=== PATIENT | female | born 1990 | race Hispanic/Latino ===

== ENCOUNTER 2018-06-04 08:58 | Emergency (ER) | payer OTHER ==
[2018-06-04 09:11] VITALS: BP 128/89
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
[2018-06-04 10:46] LABS: Basophils # (Auto) 0.1 K/mm3 (0.0-0.1); Basophils % (Auto) 1.5 % (0.0-1.8); Eosinophils # (Auto) 0.3 K/mm3 (0.0-0.4); Eosinophils % (Auto) 2.6 % (0.0-4.3); Hematocrit 41.2 % (30.3-42.9); Hemoglobin 13.5 gm/dl (10.1-14.3); Lymphocytes % (Auto) 20.1 % (13.4-35.0); Mean Corpuscular HGB Conc 33 % (30-34); Mean Corpuscular Hemoglobin 30 pg (28-32); Mean Corpuscular Volume 90 fl (79-97); Monocytes # (Auto) 0.6 K/mm3 (0.0-0.8); Platelet Count 346 K/mm3 (140-440); Red Blood Count 4.58 M/mm3 (3.65-5.03); Red Cell Distribution Width 14.1 % (13.2-15.2)
[2018-06-04 10:57] LABS: BUN/Creatinine Ratio 17; Blood Urea Nitrogen 10 mg/dL (7-17); Calcium 9.5 mg/dL (8.4-10.2); Hemolysis Index 12
== END 2018-06-04 10:29 | disposition left against medical advice (07) ==
LOC: ED 08:58
DX: S02.609A Fracture of mandible, unspecified, initial encounter for closed fracture (principal); G40.909 Epilepsy, unspecified, not intractable, without status epilepticus; F17.200 Nicotine dependence, unspecified, uncomplicated; X58.XXXA Exposure to other specified factors, initial encounter; Y93.89 Activity, other specified; Y92.89 Other specified places as the place of occurrence of the external cause; Y99.8 Other external cause status
CPT/HCPCS: 36415; 80048; 85025; 99283

== ENCOUNTER 2018-09-23 19:32 | Emergency (ER) | payer SELFPAY ==
[2018-09-23] MEDS ORDERED: NACL 0.9% 1000 ML 1,000 ML IV ONE (19:42)
[2018-09-23] MEDS ORDERED: ATIVAN IV ONE (19:45)
[2018-09-23] MEDS ORDERED: ATIVAN ONE (19:45)
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
[2018-09-23] MEDS ORDERED: CEREBYX 1,000 MG.PE in NACL 0.9% 100 ML IV ONE (20:42)
[2018-09-23 20:50] LABS: Basophils # (Auto) 0.1 K/mm3 (0.0-0.1); Basophils % (Auto) 1.3 % (0.0-1.8); Eosinophils # (Auto) 0.1 K/mm3 (0.0-0.4); Eosinophils % (Auto) 1.6 % (0.0-4.3); Hematocrit 40.3 % (30.3-42.9); Hemoglobin 13.2 gm/dl (10.1-14.3); Lymphocytes # (Auto) 1.6 K/mm3 (1.2-5.4); Lymphocytes % (Auto) 32.6 % (13.4-35.0); Mean Corpuscular HGB Conc 33 % (30-34); Mean Corpuscular Volume 86 fl (79-97); Monocytes # (Auto) 0.2 K/mm3 (0.0-0.8); Monocytes % (Auto) 4.7 % (0.0-7.3); Platelet Count 236 K/mm3 (140-440); Red Blood Count 4.66 M/mm3 (3.65-5.03); Red Cell Distribution Width 14.6 % (13.2-15.2)
[2018-09-23 20:59] LABS: INR 0.96 (0.87-1.13)
[2018-09-23 21:00] LABS: Partial Thromboplastin Time 30.8 Sec. (24.2-36.6)
[2018-09-23 21:08] LABS: Alanine Aminotransferase 7 units/L (7-56); BUN/Creatinine Ratio 16; Blood Urea Nitrogen 11 mg/dL (7-17); Calcium 8.3 mg/dL (8.4-10.2); Hemolysis Index 10
[2018-09-23 21:18] LABS: Bilirubin,Direct < 0.2 mg/dL (0-0.2)
[2018-09-23 22:11] LABS: Bilirubin,Urine NEG (Negative); Blood,Urine LG (Negative); Color,Urine Yellow (Yellow); Mucus,Urine FEW /HPF; Protein,Urine <15 mg/dL mg/dL (Negative); Urobilinogen,Urine < 2.0 mg/dL (<2.0)
[2018-09-23 22:20] LABS: Amphetamine Screen,Urine PRESUMPTIVE NEGATIVE; Benzodiazepines Screen,Urine PRESUMPTIVE NEGATIVE; Cannabinoid Screen,Urine PRESUMPTIVE NEGATIVE; Cocaine Screen,Urine PRESUMPTIVE NEGATIVE; Methadone Screen,Urine PRESUMPTIVE NEGATIVE; Opiate Screen,Urine PRESUMPTIVE NEGATIVE
[2018-09-23] MEDS ORDERED: TORADOL IV ONE (22:20)
[2018-09-23 23:29] VITALS: BP 108/72
== END 2018-09-23 23:28 | disposition home or self-care (01) ==
LOC: ED 19:32
DX: G40.909 Epilepsy, unspecified, not intractable, without status epilepticus (principal); N93.9 Abnormal uterine and vaginal bleeding, unspecified; N39.0 Urinary tract infection, site not specified; F17.200 Nicotine dependence, unspecified, uncomplicated
CPT/HCPCS: 36415; 80048; 80076; 80307; 81001; 84703; 85025; 85610; 85730; 96365; 96375; 99284; J1885; J2060; J7030; Q2009

== ENCOUNTER 2019-01-24 04:23 | Emergency (ER) | payer OTHER ==
[2019-01-24 05:06] LABS: Basophils # (Auto) 0.1 K/mm3 (0.0-0.1); Basophils % (Auto) 1.2 % (0.0-1.8); Eosinophils # (Auto) 0.1 K/mm3 (0.0-0.4); Eosinophils % (Auto) 1.7 % (0.0-4.3); Hemoglobin 13.3 gm/dl (10.1-14.3); Mean Corpuscular HGB Conc 33 % (30-34); Mean Corpuscular Volume 84 fl (79-97); Monocytes # (Auto) 0.6 K/mm3 (0.0-0.8); Monocytes % (Auto) 7.5 % (0.0-7.3); Platelet Count 241 K/mm3 (140-440); Red Blood Count 4.78 M/mm3 (3.65-5.03); Red Cell Distribution Width 16.1 % (13.2-15.2)
[2019-01-24 05:27] LABS: BUN/Creatinine Ratio 14; Blood Urea Nitrogen 13 mg/dL (7-17); Calcium 9.6 mg/dL (8.4-10.2); Hemolysis Index 9
[2019-01-24] MEDS ORDERED: BOOSTRIX IM ONE (06:22)
[2019-01-24 06:28] LABS: Amorphous Crystals,Urine 1+; Bacteria,Urine 4+ /HPF (Negative); Bilirubin,Urine NEG (Negative); Blood,Urine NEG (Negative); Color,Urine Yellow (Yellow); Mucus,Urine FEW /HPF; Protein,Urine <15 mg/dL mg/dL (Negative); Urobilinogen,Urine < 2.0 mg/dL (<2.0)
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
[2019-01-24 06:35] LABS: Amphetamine Screen,Urine PRESUMPTIVE NEGATIVE; Benzodiazepines Screen,Urine PRESUMPTIVE NEGATIVE; Methadone Screen,Urine PRESUMPTIVE NEGATIVE; Opiate Screen,Urine PRESUMPTIVE NEGATIVE
[2019-01-24 06:50] LABS: Cannabinoid Screen,Urine PRESUMPTIVE POSITIVE; Cocaine Screen,Urine PRESUMPTIVE POSITIVE
[2019-01-24] MEDS ORDERED: MACROBID PO ONE (07:22)
[2019-01-24] MEDS ORDERED: VISTARIL PO PRN (10:10)
--- NOTE | 2019-01-24 10:12 | Consultation ---
History of Present Illness - Reason for Consult Consult date: 01/24/19 Reason for consult: Mental Health Evaluation Requesting physician: GAVIN BABB - Chief Complaint Chief complaint: 'I need help" - History of Present Psychiatric Illness 28-year-old female presents to the emergency department for a mental health evaluation. Today the patient is calm, but evasive during the assessment. She stated that she only came to the ER to get medications. She acknowledged a recent suicide attempt by hanging herself. 2 or 3 eeks ago. She stated that she have not been compliant with her medications in "months." She was asked several other questions about her mental health, her answers were vague. She would not conform or deny SI's when asked. She rate her depression/anxiety 6/10, with 10 being the worse. She denies HI's and AVH's. She denies a poor appetite, but acknowledged erratic sleep. She denies alcohol consumption (etoh). Medications and Allergies Allergies Allergy/AdvReac Type Severity Reaction Status Date / Time No Known Allergies Allergy Unverified 06/04/18 09:11 Home Medications Medication Instructions Recorded Confirmed Last Taken Type Naproxen [Naprosyn] 500 mg PO BID #14 tablet 09/23/[address]in [place]/M-Cryst 100 mg PO Q12HR #14 capsule 09/23/18 Unknown Rx [Macrobid CAP] Phenytoin [Dilantin] 100 mg PO Q8HR #90 capsule 09/23/18 Unknown Rx medroxyPROGESTERone ACETATE 10 mg PO QDAY #10 tablet 09/23/18 Unknown Rx [Provera] Active Meds: Active Medications Nicotine (Habitrol) 14 mg TD ONCE ONE Stop: 01/24/19 10:43 Past psychiatric history - Past Medical History Past Medical History: seizures Past Surgical History: No surgical history - past Psychiatric treatment and history psychiatric treatment history: Hx of substance abuse. Denies a fam psy hx. - Social History Social history: other (Reside with her boyfriend) Mental Status Exam - Vital signs Last Vital Signs Temp 98.4 F 01/24/19 05:41 Pulse 62 01/24/19 05:42 Resp 18 01/24/19 05:42 BP 122/91 01/24/19 05:42 Pulse Ox 100 01/24/19 05:42 - Exam Narrative exam: MSE: Appearance: calm Behavior: regular eye contact Speech: regular rate and tone Mood: evasive Affect: congruent to mood Thought Process:circumstantial Thought Content: denies HI's and AVH's Motor Activity: sitting up in bed Cognition: A/O x 3 Insight: vague Judgment: variable Results Result Diagrams: 01/24/19 04:44 01/24/19 04:44 Abnormal lab results 01/24/19 01/24/19 01/24/19 Range/Units 04:44 04:44 04:44 RDW (13.2-15.2) % Lymph % (Auto) (13.4-35.0) % [place] % (Auto) (0.0-7.3) % Carbon Dioxide 21 L (22-30) mmol/L Urine WBC (Auto) (0.0-6.0) /HPF Salicylates < 0.3 L (2.8-20.0) mg/dL Acetaminophen < 5.0 L (10.0-30.0) ug/mL 01/24/19 01/24/19 Range/Units 04:44 05:53 RDW 16.1 H (13.2-15.2) % Lymph % (Auto) 40.0 H (13.4-35.0) % [place] % (Auto) 7.5 H (0.0-7.3) % Carbon Dioxide (22-30) mmol/L Urine WBC (Auto) 26.0 H (0.0-6.0) /HPF Salicylates (2.8-20.0) mg/dL Acetaminophen (10.0-30.0) ug/mL All other labs normal. Assessment and Plan Assessment and plan: Impression: MDD. Unspecified Anxiety DO. Cannabis USe DO. Substance use DO (cocaine). Today the patient was calm, but evasive during the assessment. DDx: Bipolar DO, Substance Induced Mood DO Recommendation/Plan: Initiate 1013. Start Remeron 15 mg Po HS for depression and Vistaril 25 mg PO Q8hrs PRN for acute anxiety. Discussed possible suicidality/medication induced andre with the patient reference Remeron, she verbalized undersatnding. Dispo: The patient can referred to inpatient psy services. Will staff with Dr Cherri Joaquin,
[2019-01-24] MEDS ORDERED: HABITROL TD ONE (10:42)
[2019-01-24] MEDS: DILANTIN PO SCH ×2 (14:22→22:23)
[2019-01-24] MEDS ORDERED: MACROBID ONE (19:46)
[2019-01-24] MEDS: MACROBID PO SCH (22:23)
[2019-01-25] MEDS: REMERON PO SCH (00:18)
[2019-01-25] MEDS: DILANTIN PO SCH ×2 (06:37→14:01)
[2019-01-25] MEDS: MACROBID PO SCH (09:31)
--- NOTE | 2019-01-25 10:39 | Progress Note ---
Subjective - Reason for Consult Consult date: 01/25/19 Reason for consult: Psychiatry Follow-up - Chief Complaint Chief complaint: 'Hello" 28-year-old female presents to the emergency department for a mental health evaluation. Today the patient was calm and cooperative during the assessment. She is more willing to discuss her mental health today. She stated that she will seek out resources to help her stay "clean from drugs." She stated that she got rest last night. She denies SI/HI's and AVH's. She denies any side effects of her medication. Mental Status Exam - Vital signs Last Vital Signs Temp 97.9 F 01/25/19 09:06 Pulse 79 01/25/19 09:06 Resp 17 01/25/19 09:07 BP 106/71 01/25/19 09:06 Pulse Ox 99 01/25/19 09:07 - Exam Narrative exam: MSE: Appearance: calm, cooperative Behavior: regular eye contact Speech: regular rate and tone Mood: 'okay: Affect: congruent to mood Thought Process: circumstantial Thought Content: denies SI/HI's and AVH's Motor Activity: sitting up in bed Cognition: A/O x 3 Insight: variable to fair Judgment: variable to fair Assessment and Plan Impression: MDD. Unspecified Anxiety DO. Cannabis Use DO. Substance use DO (cocaine). Today the patient was calm and cooperative during the assessment. DDx: Bipolar DO, Substance Induced Mood DO Recommendation/Plan: Reevaluate the patient's 1013 in 24 hours. Continue Remeron 15 mg PO HS for depression and Vistaril 25 mg PO Q8hrs PRN for acute anxiety. Discussed possible suicidality/medication induced andre with the patient reference Remeron, she verbalized undersatnding. Dispo: If the patient's 1013 is rescinded in 24 hours, she can follow up with [facility] for outpatient psy services. Will staff with Dr Cherri Joaquin,
[2019-01-26] MEDS: DILANTIN PO SCH ×2 (00:31→22:10)
[2019-01-26] MEDS: MACROBID PO SCH ×3 (00:31→22:10)
[2019-01-26] MEDS: REMERON PO SCH ×2 (00:31→22:10)
--- NOTE | 2019-01-26 13:34 | Progress Note ---
Subjective - Reason for Consult Consult date: 01/26/19 Reason for consult: Psychiatric Follow-up Evaluation - Chief Complaint Chief complaint: "I feel good." Patient is 28-year-old female that presents to the emergency department for a mental health evaluation. Today the patient is cooperative but irritable during the assessment. Patient is guarded throughout the assessment. Thought content impoverished. She reports appropriate sleep and appetite.Patient denies SI/HI's, A/VH's, and delusions. Patient refused to address substance abuse. Provider unable to fully assess. Mental Status Exam - Vital signs Last Vital Signs Temp 97.9 F 01/26/19 08:47 Pulse 60 01/26/19 08:47 Resp 20 01/26/19 08:47 BP 100/62 01/26/19 08:47 Pulse Ox 99 01/26/19 08:47 - Exam Narrative exam: Mental Status Exam: Appearance: calm, cooperative Behavior: intermittent eye contact Speech: regular rate and tone Mood: irritable Affect: congruent to mood Thought Process: impoverished, circumstantial Thought Content: denies SI/HI's, AVH's, and delusions Motor Activity: sitting up in bed Cognition: A/O x 3 Insight: variable to fair Judgment: variable to fair Assessment and Plan Impression: MDD. Unspecified Anxiety DO. Cannabis Use DO. Substance use DO (cocaine). Today the patient was cooperative but irritable during the assessment. Provider unable to fully assess. DDx: Bipolar DO, Substance Induced Mood DO Recommendation/Plan: 1. Reevaluate the patient's 1013 in 24 hours. 2. Continue Remeron 15 mg PO HS for depression and Vistaril 25 mg PO Q8hrs PRN for acute anxiety. Discussed possible suicidality/medication induced andre with the patient reference Remeron, she verbalized undersatnding. Disposition: If the patient's 1013 is rescinded in 24 hours, she can follow up with [facility] for outpatient psy services. Will staff with Dr. Cherri Joaquin
[2019-01-26 20:38] VITALS: BP 92/68
== END 2019-01-27 00:08 ==
LOC: ED 04:23 → EEVIPCON 04:23 → ED 01-27 00:08
DX: F31.9 Bipolar disorder, unspecified (principal); G40.909 Epilepsy, unspecified, not intractable, without status epilepticus; F43.10 Post-traumatic stress disorder, unspecified; N30.00 Acute cystitis without hematuria; F12.10 Cannabis abuse, uncomplicated; F14.10 Cocaine abuse, uncomplicated; F17.200 Nicotine dependence, unspecified, uncomplicated
CPT/HCPCS: 36415; 80048; 80307; 81001; 84703; 85025; 99285; G0480; 80320; Q0177

== ENCOUNTER 2019-04-30 00:25 | Emergency (ER) | payer OTHER ==
[2019-04-30 01:31] LABS: Basophils # (Auto) 0.1 K/mm3 (0.0-0.1); Basophils % (Auto) 1.1 % (0.0-1.8); Eosinophils # (Auto) 0.1 K/mm3 (0.0-0.4); Eosinophils % (Auto) 1.5 % (0.0-4.3); Hematocrit 38.6 % (30.3-42.9); Hemoglobin 12.8 gm/dl (10.1-14.3); Lymphocytes # (Auto) 2.7 K/mm3 (1.2-5.4); Lymphocytes % (Auto) 42.3 % (13.4-35.0); Mean Corpuscular HGB Conc 33 % (30-34); Mean Corpuscular Volume 88 fl (79-97); Monocytes # (Auto) 0.6 K/mm3 (0.0-0.8); Monocytes % (Auto) 9.4 % (0.0-7.3); Platelet Count 193 K/mm3 (140-440); Red Blood Count 4.39 M/mm3 (3.65-5.03); Red Cell Distribution Width 15.4 % (13.2-15.2)
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
[2019-04-30 01:52] LABS: BUN/Creatinine Ratio 11; Blood Urea Nitrogen 9 mg/dL (7-17); Calcium 9.1 mg/dL (8.4-10.2); Hemolysis Index 1
[2019-04-30] MEDS ORDERED: GEODON IM ONE ×2 (03:41→07:34)
[2019-04-30] MEDS ORDERED: WATER FOR INJ Sterile (PF) 10 ML ONE (03:41)
[2019-04-30 03:45] LABS: Amphetamine Screen,Urine PRESUMPTIVE NEGATIVE; Benzodiazepines Screen,Urine PRESUMPTIVE NEGATIVE; Methadone Screen,Urine PRESUMPTIVE NEGATIVE; Opiate Screen,Urine PRESUMPTIVE NEGATIVE
[2019-04-30 04:03] LABS: Cannabinoid Screen,Urine PRESUMPTIVE POSITIVE; Cocaine Screen,Urine PRESUMPTIVE POSITIVE
[2019-04-30] MEDS ORDERED: MAGNESIUM SULFATE 2GM/50ML 0 GM/0 ML BAG IV ONE (04:38)
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
[2019-05-01] MEDS ORDERED: VASELINE TP PRN (01:15)
[2019-05-01] MEDS ORDERED: TRIPLE ANTIBIOTIC TP ONE (01:15)
[2019-05-01 04:48] LABS: Bilirubin,Urine NEG (Negative); Blood,Urine NEG (Negative); Color,Urine Yellow (Yellow); Mucus,Urine 1+ /HPF; Protein,Urine <15 mg/dL mg/dL (Negative); Urobilinogen,Urine < 2.0 mg/dL (<2.0)
--- NOTE | 2019-05-01 14:11 | Progress Note ---
Subjective - Reason for Consult Consult date: 05/01/19 Reason for consult: Psychiatry Follow-up - Chief Complaint Chief complaint: "I didn't try to hang myself" 29 y.o. whit female who presented to the ER for detox. Also, the patient has fresh ligature ness around her neck w/scabs present abrasions to face and chest. This patient is known to me. Today the patient was irritable during the assessment. Her story why she obtained a ligature jeanna around her neck and abrasion on her face didn't make sense. The patient has a hx of suicide attempt by hanging herself per a previous ER visit. After asking her several more questions about her abrasions, she refused to answer and put the bed sheet over her head. Mental Status Exam - Vital signs Last Vital Signs Temp 98.0 F 05/01/19 02:00 Pulse 86 05/01/19 02:00 Resp 18 05/01/19 02:00 BP 105/69 05/01/19 02:00 Pulse Ox 97 05/01/19 02:00 - Exam Narrative exam: MSE: Appearance: in hospital attire Behavior: poor eye contact Speech: regular rate and tone Mood: irritable, somewhat evasive Affect: congruent to mood Thought Process: circumstantial Thought Content: unable to assess Motor Activity: ambulatory Cognition: A/O x3 Insight: variable Judgment: variable Assessment and Plan Impression: MDD. Substance Use DO (cocaine). Cannabis Use DO. Possible suicide attempt via hanging. Today the patient was irritable during the assessment. DDx: Substance Induced Mood DO Recommendation/Plan: Continue 1013 and start Remeron 15 mg PO HS for depression. Attempted to discussed possible suicidality/medication induced andre with the patient. Dispo: The patient was referred to inpatient psy services. Staffed with Dr. Cherri Joaquin.
[2019-05-01] MEDS ORDERED: TYLENOL ONE (20:24)
[2019-05-01] MEDS ORDERED: TYLENOL PO ONE (20:25)
[2019-05-01] MEDS: REMERON PO SCH (22:19)
--- NOTE | 2019-05-02 10:35 | Progress Note ---
Subjective - Reason for Consult Consult date: 05/02/19 Reason for consult: Psychiatry Follow-up - Chief Complaint Chief complaint: "I need help for my drug use" 29 y.o. whit female who presented to the ER for detox. Also, the patient has fresh ligature ness around her neck w/scabs present abrasions to face and chest. This patient is known to me. Today the patient was still irritable during the assessment. She is adamant that she need help with her drug use. She wasn't willing to discuss her action prior to her ER visit. She was explained the rationale why she was placed on Remeron, because she had questions about Paxil. No gestures of SI/HI's. Mental Status Exam - Vital signs Last Vital Signs Temp 98.5 F 05/02/19 07:00 Pulse 88 05/02/19 07:00 Resp 18 05/02/19 07:00 BP 109/69 05/02/19 07:00 Pulse Ox 98 05/02/19 07:00 - Exam Narrative exam: MSE: Appearance: somewhat uncooperative Behavior: poor eye contact Speech: regular rate and tone Mood: irritable Affect: congruent to mood Thought Process: circumstantial Thought Content: no gestures of SI/HI's Motor Activity: ambulatory Cognition: A/O x3 Insight: variable Judgment: poor Assessment and Plan Impression: MDD. Substance Use DO (cocaine). Cannabis Use DO. Possible suicide attempt via hanging. Today the patient continue to be irritable during the assessment. DDx: Substance Induced Mood DO Recommendation/Plan: Continue 1013 and Remeron 15 mg PO HS for depression. Attempted to discussed possible suicidality/medication induced andre with the patient. Dispo: The patient was referred to inpatient psy services. Will staff with Dr. Cherri Joaquin.
[2019-05-02] MEDS: DILANTIN PO SCH ×3 (11:57→22:01)
[2019-05-02] MEDS: REMERON PO SCH (22:01)
[2019-05-03] MEDS: DILANTIN PO SCH ×3 (10:33→22:25)
--- NOTE | 2019-05-03 12:34 | Progress Note ---
Subjective - Reason for Consult Consult date: 05/03/19 Reason for consult: Psychiatry Follow-up - Chief Complaint Chief complaint: "I am well" 29 y.o. whit female who presented to the ER for detox. Also, the patient has fresh ligature ness around her neck w/scabs present abrasions to face and chest. This patient is known to me. Today the patient was calm and cooperative during the assessment.She stated that her main issue is her "drug use." She denies SI/HI's and AVH's. She denies any side effects from her medication. Mental Status Exam - Vital signs Last Vital Signs Temp 97.9 F 05/03/19 10:46 Pulse 95 H 05/03/19 10:46 Resp 20 05/03/19 10:46 BP 109/69 05/03/19 10:46 Pulse Ox 97 05/03/19 10:46 - Exam Narrative exam: MSE: Appearance: calm Behavior: regular eye contact Speech: regular rate and tone Mood: "okay" Affect: congruent to mood Thought Process: circumstantial Thought Content: denies SI/Hi's and AVH's Motor Activity: ambulatory Cognition: A/O x3 Insight: variable Judgment: variable Assessment and Plan Impression: MDD. Substance Use DO (cocaine). Cannabis Use DO. Possible suicide attempt via hanging. Today the patient was calm and cooperative during the assessment. DDx: Substance Induced Mood DO Recommendation/Plan: Continue 1013 and Remeron 15 mg PO HS for depression. Discussed possible suicidality/medication induced andre with the patient reference Remeron, she verbalized understanding. Dispo: The patient was referred to inpatient psy services. Will staff with Dr. Cherri Joaquin.
[2019-05-03] MEDS: MACROBID PO SCH ×2 (16:00→22:26)
[2019-05-03] MEDS: REMERON PO SCH (22:26)
[2019-05-04] MEDS: DILANTIN PO SCH ×3 (09:00→21:48)
--- NOTE | 2019-05-04 10:46 | Progress Note ---
Subjective - Reason for Consult Consult date: 05/04/19 Reason for consult: Psychiatric Follow-up Evaluation - Chief Complaint Chief complaint: "I feel good." Patient is a 29 y.o. white female who presented to the ER for detox. Also, the patient has fresh ligature ness around her neck w/scabs present abrasions to face and chest. This patient is known to me. Today the patient is cooperative but anxious during the assessment. Later, she states " I'm frustrated because I've been here for a long time." She stated that her main issue is her "drug use." She denies SI/HI's, AVH's, delusions. She denies any side effects from her medication. Mental Status Exam - Vital signs Last Vital Signs Temp 97.9 F 05/04/19 08:40 Pulse 83 05/04/19 08:40 Resp 16 05/04/19 08:40 BP 100/72 05/04/19 08:40 Pulse Ox 96 05/04/19 08:40 - Exam Narrative exam: Mental Status Exam Appearance: cooperative, anxious Behavior: regular eye contact Speech: regular rate and tone Mood: "I'm good" Affect: congruent to mood Thought Process: circumstantial Thought Content: denies SI/HI's, AVH's, and delusions Motor Activity: ambulatory Cognition: A/O x 3 Insight: variable Judgment: variable Assessment and Plan Impression: MDD. Substance Use DO (cocaine). Cannabis Use DO. Possible suicide attempt via hanging. Today the patient is cooperative but anxious during the assessment. She denies SI/HI's, A/VH's, and delusions. DDx: Substance Induced Mood DO Recommendation/Plan: 1. Continue 1013. 2. Continue Remeron 15 mg PO HS for depression. Discussed possible suicidality/medication induced andre with the patient reference Remeron, she verbalized understanding. Disposition: Patient accepted to [facility]. Awaiting transport time. Will staff with Dr. Cherri Joaquin.
[2019-05-04] MEDS: MACROBID PO SCH ×2 (10:55→21:48)
[2019-05-04] MEDS: REMERON PO SCH (21:49)
[2019-05-05] MEDS: DILANTIN PO SCH (06:18)
[2019-05-05 08:51] VITALS: BP 103/62
[2019-05-05] MEDS: MACROBID PO SCH (10:30)
--- NOTE | 2019-05-05 11:47 | Progress Note ---
Subjective - Reason for Consult Consult date: 05/05/19 Reason for consult: Psychiatry Follow-up - Chief Complaint Chief complaint: "I will stop with the drugs" Patient is a 29 y.o. white female who presented to the ER for detox. Also, the patient has fresh ligature ness around her neck w/scabs present abrasions to face and chest. This patient is known to me. Today the patient was calm and cooperative during the assessment. Per collateral information from her mother Sulma Raymundo at [phone], she stated that the patient leslie a drug problem and want her to get help. She stated that the patient can return home to [place] once discharged. The patient denies SI/HI's and AVH's. No indications of side effects from her medication. Mental Status Exam - Vital signs Last Vital Signs Temp 98.0 F 05/05/19 08:50 Pulse 93 H 05/05/19 08:50 Resp 18 05/05/19 06:00 BP 103/62 05/05/19 08:50 Pulse Ox 97 05/05/19 08:50 Assessment and Plan Impression: MDD. Substance Use DO (cocaine). Cannabis Use DO. Possible suicide attempt via hanging. Today the patient was calm and cooperative during the assessment. DDx: Substance Induced Mood DO Suicide Risk Assessment I. This screening and assessment is based on information collected from the following sources: II. SUICIDE RISK SCREENING (within last 30 days): A.) Suicidal thoughts/behaviors: Yes SUICIDE RISK ASSESSMENT III. FACTORS THAT INCREASE RISK: A.) Demographic and Substance Use Factors: Yes (Marijuana and Cocaine) B.) Current/Recent Factors (within past 3 months): Psychosocial/Environmental Factors: Drug Addiction Physical Illness: None Cognitive/Psychological Factors: None C.) Historical Factors: None D.) Diagnostic/Symptom/Treatment Factors: None E.) Acute Risk Factor Severity (DESC; MILD/MOD/SEVERE): Mild Other factors for this individual that increase risk: None IV. FACTORS THAT DECREASE RISK: Resilience/Protective Factors: Patient want to decrease her stress and stop using recreational drugs Other factors for this individual that decrease risk: Patient denies a desire to harm self V. Clinician's Formulation of Risk and Determination of level of Care: This is a 35 y.o. white female who possibly tried to hang herself prior to coming to the ER. She is adamant that she didn't try to bruner herself, but she had ligature ness around her neck when assessed. She stated that her "issue" is her drug addiction. She is adamant that she want to stop using recreational drugs. She stated that she will follow-up with outpatient psy/rehab services once discharged. Additionally, she has become insightful about how to better address her current issues. The patient is not impaired by substance. She is able to take care of her ADLs and is not at imminent risk of harm to self or others. Consequently, it is the opinion of the treatment team that the patient is at low risk of suicide and does not meet criteria to continue an involuntary psychiatric hold. Estimation of Imminent Risk: Low due to the above explanation. Determination of Level of Care based on Suicide Risk: Outpatient follow-up. Narrative description of clinical reasoning. Given the fact that the patient is willing to engage in outpatient psy rehab services, it is reasonable to expect that the patient will seek services. At this current time, she is not impulsive and does not have any risk factors to increase the likelihood of her impulsive behavior. Therefore, it is reasonable to expect that the patient will engage in outpatient/rehab services which will reduce further unsafe behaviors. . Plan and Interventions based on Suicide Risk: This patient will likely be stepped down to an outpatient mental health center in the community upon discharge and follow-up within 7 days of her discharge from the hospital. VII. Discharge/After Hours Support Plan: Patient can return back to the ER, call 911 or crisis line if symptoms of depression, anxiety, suicidality return. Recommendation/Plan: Rescind 1013. Continue Remeron 15 mg PO HS for depression. Discussed possible suicidality/medication induced andre with the patient reference Remeron, she verbalized understanding. Discussed generalized coping skills with the patient, she verbalized understanding. Dispo: The patient can follow up [facility] for outpatient psy/rehab services. Staffed with Dr. Cherri Joaquin.
== END 2019-05-05 14:00 | disposition home or self-care (01) ==
LOC: EEVIPCON 00:25 → ED 00:25
DX: F32.9 Major depressive disorder, single episode, unspecified (principal); F12.10 Cannabis abuse, uncomplicated
CPT/HCPCS: 36415; 80048; 80185; 80307; 80320; 81001; 84703; 85025; 87076; 87086; 87186; A6250; G0480; J3475; J3486